=== PATIENT | female | born 1975 | race African-American/Black ===

== ENCOUNTER 2017-03-22 13:48 | Emergency (ER) | payer OTHER ==
[~2017-03-22] VITALS: Ht 162.6 cm; Wt 150.9 kg
[~2017-03-22 13:48] MED LIST: LASIX 40MG TABL40 MG PO; ZYLOPRIM 300MG300 MG PO
[2017-03-22 13:49] VITALS: PULSE 106; TEMP 98.1
[2017-03-22] MEDS ORDERED: NORCO 325 MG-51 TAB PO (13:53)
[2017-03-22 14:33] LABS: COLLECTION METHOD CLEAN CATCH
[2017-03-22 14:39] LABS: MUCOUS Present /lpf; PH 5 (5-8); URINE APPEARANCE Clear; URINE BACTERIA Rare /hpf; URINE BILIRUBIN Negative (NEGATIVE); URINE BLOOD Negative (NEGATIVE); URINE COLOR Yellow; URINE GLUCOSE Negative (NEGATIVE); URINE KETONE 1+ (NEGATIVE); URINE LEUKOCYTE ESTERASE Negative (NEGATIVE); URINE PROTEIN(semi-quant) 1+ (NEGATIVE); URINE RBC 0-2 /hpf
[2017-03-22 14:57] LABS: BASO % 0.3 % (0.0-2.0); EOS # 0.1 (0.0-0.7); EOS % 0.8 % (0-4.0); GRAN # 8.7 (1.4-6.5); GRAN % 67.4 % (42.2-75.2); HEMATOCRIT 39.6 % (37.0-47.0); HEMOGLOBIN 12.2 g/dl (12.5-16.0); LYMPH # 3.2 (1.2-3.4); LYMPH % 24.9 % (20.0-51.0); MEAN CELL VOLUME 80 fl (80.0-100.0); MEAN CORPUSCULAR HEMOGLOBIN 25 pg (27.0-31.0); MEAN CORPUSCULAR HGB CONC 31 g/dl (33.0-37.0); MEAN PLATELET VOLUME 9.7 fl (7.4-10.4); MONO # 0.8 (0.1-0.6); MONO % 6.1 % (1.7-9.3); PLATELET COUNT 313 K/mm3 (130-400); RED BLOOD COUNT 4.95 M/mm3 (4.10-5.30)
[2017-03-22 15:20] LABS: ADJUSTED CALCIUM 9.4 mg/dL (8.4-10.2); ALBUMIN 4.4 gm/dL (3.5-5.0); BILIRUBIN,TOTAL 0.5 mg/dL (0.0-1.0); C-REACTIVE PROTEIN 1.6 mg/dL (0.0-0.9); CALCIUM 9.7 mg/dL (8.4-10.2); CREATININE, serum 0.83 mg/dL (0.52-1.25); POTASSIUM 4.1 mmol/L (3.4-5.0)
[2017-03-22] MEDS ORDERED: PERCOCET 325 MG1 TA2 PO (16:35)
== END 2017-03-22 17:20 | disposition home or self-care (01) ==
LOC: COL.ER 13:48
PROVIDERS: Nurse Practitioner
DX: R10.32 Left lower quadrant pain (principal); Z32.02 Encounter for pregnancy test, result negative
CPT/HCPCS: J2270; J2405; J7030; Q9967